=== PATIENT | male | born 1995 | race African-American/Black ===

== ENCOUNTER 2017-10-16 06:25 | Emergency (ER) | payer SELFPAY ==
[~2017-10-16] VITALS: Ht 185.4 cm; Wt 74.0 kg
[2017-10-16 06:41] VITALS: BP 125/85
== END 2017-10-16 10:45 | disposition home or self-care (01) ==
LOC: ER 06:54
DX: H66.91 Otitis media, unspecified, right ear (principal)
CPT/HCPCS: 99283